=== PATIENT | female | born 1945 | race Caucasian/White ===

== ENCOUNTER → 2017-10-19 | Day surgery (SDC) | payer MEDICARE, OTHER ==
[~2017-10-19] VITALS: Ht 167.6 cm; Wt 61.2 kg
[~2017-10-19] MED LIST: ASPI-482 PO; BUPIVAC MPF-EPI 0.5%-1:200000 30 ML VIAL. ONE; CALC625T PO; DEXAMETHASONE SOD PHOS 20 MG/5 ML VIAL. ONE; GLUC1TAB45 PO; GLYCOPYRROLATE 1 MG/5 ML VIAL. ONE; HYDROmorphone 2 MG/ML VIAL IV PRN; IV RINGERS,LACTATED 1000ML 1,000 ML IV SCH; LIDOCAINE 1% PF 2 ML VIAL. ID PRN; LIDOCAINE 2% PF Vial for OR 5 ML VIAL. ONE; MORPHINE SULFATE 2 MG/ML DISP.SYRIN. IV PRN; MULT1TAB52 PO; NEOSTIGMINE METHYLSULFATE 5 MG/5 ML SYRINGE. ONE; OMEP20TA63 PO; ONDANSETRON PF 4 MG/2 ML VIAL. IV PRN; ONDANSETRON PF 4 MG/2 ML VIAL. ONE; PROCHLORPERAZINE 10 MG/2 ML VIAL. IV PRN; PROPOFOL 20 ML IV ONE; ROCURONIUM 50 MG/5 ML VIAL. ONE; SEVOFLURANE 61 TO 120 MINUTES. IH ONE; SUMA50TA3 PO; VENL37.56 PO; fentaNYL PF VIAL 100 MCG/2 ML VIAL IV PRN; fentaNYL PF VIAL 100 MCG/2 ML VIAL ONE
[2017-10-19 07:03] LABS: BASO # 0.1 x10^3/uL (0.0-0.2); BASO % 1 % (0-3); EOS % 2 % (0-3); HEMATOCRIT 45.6 % (36.0-47.0); HEMOGLOBIN 15.3 g/dL (12.0-15.5); LYMPH # 2.5 x10^3/uL (1.0-4.8); LYMPH % 32 % (24-48); MEAN CORPUSCULAR HEMOGLOBIN 33 pg (25-35); MEAN CORPUSCULAR HGB CONC 34 g/dL (31-37); MEAN CORPUSCULAR VOLUME 99 fL (79-100); MONO % 13 % (0-9); NEUT % 52 % (31-73); PLATELET COUNT 264 x10^3/uL (140-400); RED BLOOD COUNT 4.61 x10^6/uL (3.50-5.40); RED CELL DISTRIBUTION WIDTH 13.8 % (11.5-14.5); WHITE BLOOD COUNT 7.7 x10^3/uL (4.0-11.0)
--- NOTE | 2017-10-19 07:10 | EKG ---
[facility] [address] [place] [address] Test Date: 2017-10-19 Test Time: 07:10:11 Pat Name: AALIYAH ROWLAND Department: Room: Gender: F Logging Equipment Operator: ZOIE : 1945 Requested By: ANNETTE SCHMITT Order Number: [id number] Reading MD: Measurements Intervals [place] Rate: 72 P: 62 NV: 128 QRS: 28 QRSD: 128 T: 47 QT: 412 QTc: 453 Interpretive Statements SINUS RHYTHM LEFT ATRIAL ABNORMALITY RIGHT BUNDLE BRANCH BLOCK RVH WITH REPOLARIZATION ABNORMALITY ABNORMAL ECG RI6.01 No previous ECG available for comparison
--- NOTE | 2017-10-19 08:40 | PDOC ---
BRIEF OPERATIVE NOTE Date: Oct 19, 2017 Pre-Op Diagnosis pelvic pain and FH ovarian cancer Post-Op Diagnosis same Procedure Performed laparoscopic BSO Surgeon Carter Global Technical Writer none Anesthesiologist yes Anesthesia Type: General Blood Loss <10cc IV Fluid see anesthesia Urine Output see anesthesia report Specimens Obtained bilateral tubes and ovaries Findings see dictation Complications none Operative Note [id number] ANNETTE SCHMITT MD Oct 19, 2017 08:40
--- NOTE | 2017-10-19 08:41 | DISCH ---
DISCHARGE INSTRUCTIONS Condition on Discharge Condition on Discharge: Stable Activity After Discharge Activity Instructions for Disc: No restrictions, Avoid exertion, Progressive ambulation Lifting Instructions after Dis: No heavy lifting Exercise Instruction after Dis: Progress as tolerated Driving Instructions after Dis: Do not drive today Weight Bearing Status after Di: Full weight bearing Diet after Discharge Diet after Discharge: Regular Wound Incision Care Wound/Incision Care: Ice to area for comfort, May get incision wet Contacting the DRKelsey after DC Call your doctor for: If your condition worsens Follow-Up Follow up with: Dr. Myers in 1 week ANNETTE SCHMITT MD Oct 19, 2017 08:41
[2017-10-19] MEDS: fentaNYL PF VIAL 100 MCG/2 ML VIAL IV PRN ×2 (08:45→08:55)
--- NOTE | 2017-10-19 09:50 | OP ---
DATE OF SURGERY: PREOPERATIVE DIAGNOSES: This is a 72-year-old female who presents today for a history of pelvic pain and a family history of ovarian cancer in several of her relatives. POSTOPERATIVE DIAGNOSES: This is a 72-year-old female who presents today for a history of pelvic pain and a family history of ovarian cancer in several of her relatives. PROCEDURE: Laparoscopic bilateral salpingo-oophorectomy. SURGEON: Marisela Schmitt MD. ANESTHESIA: General. COMPLICATIONS: None. ESTIMATED BLOOD LOSS: Less than 10 mL. SPECIMENS: Bilateral tubes and ovaries. DESCRIPTION OF PROCEDURE: After informed consent was obtained, the patient was taken to the operating room and given a smooth induction of anesthesia without complications. Her abdomen, perineum and vagina were prepped and draped in usual sterile fashion. Her legs have been placed in Nicko stirrups. A bivalve speculum was placed in the vagina, and the anterior lip of the cervix was grasped with a single tooth tenaculum. A Valtchev was placed through the cervical os and attached to the tenaculum. The speculum was then removed. We did place a red Chapman catheter in the urethra and allowed it to drain freely throughout the case. These instruments were removed at the end. I then changed gloves and went above. Since the patient had a vertical incision in the past due to a partial colectomy, we opted to do a left upper quadrant stick. A vertical line across the midline of the breast was transposed onto the abdomen. We came about 3 cm beneath the edge of the ribcage to make a small 5 mm incision. The bladeless trocar was used to place the camera, the camera confirmed good trocar placement. We did then notice there were quite extensive adhesions across the midline where the previous scar was. These appeared to be mostly omental adhesions, and since they were out of our way, we did not bother with them. We went around them and placed a 5 mm port on the right side. This was placed under direct visualization and then an 11 mm port on the left side. These ports were placed under direct visualization. The patient was placed in Trendelenburg, and the uterus was noted to be slightly enlarged in a regular shape with multiple small fibroids. Both tubes and ovaries appeared to be normal. The tube was elevated on the left side. We were able to visualize the ureter beneath the tube and ovary. We then used the LigaSure to cauterize across the infundibulopelvic ligament and beneath the ovary to free it from its attachments. We then came across the uteroovarian pedicles to free the ovary and tube from the uterus. The same procedure was carried out on the opposite side. We also visualized the ureter on the right side, and we were well away from it. Once the tubes and ovaries were free, we placed an Endocatch bag down the port. Both ovaries were placed in the bag and removed from the abdomen without difficulty. Once this port was removed, we removed the other ports under direct visualization as well. I actually did take the camera out and put it in a different port to look at the upper abdomen. The patient's liver looked little bit enlarged to me, but otherwise normal. No bleeding was noted and no injuries from port placement were noted. Once the port sites were removed, the gas was allowed to escape, and the small incisions were closed with an interrupted suture of 4-0 nylon and infiltrated with anesthetic for patient comfort. Larger incision was closed with a 3-0 subcuticular stitch and also infiltrated with anesthetic for patient comfort. The patient tolerated the procedure well. There were no complications. MARISELA SCHMITT MD DR: ELISE/michael JOB#: [id number] / [id number]
[2017-10-19 10:45] VITALS: BP 115/51
== END | disposition home or self-care (01) ==
LOC: SURG 05:45
PROVIDERS: ATTEND Obstetrics & Gynecology
DX: R10.2 Pelvic and perineal pain (principal); K21.9 Gastro-esophageal reflux disease without esophagitis; F32.9 Major depressive disorder, single episode, unspecified; Z80.41 Family history of malignant neoplasm of ovary; Z98.41 Cataract extraction status, right eye; Z98.42 Cataract extraction status, left eye; Z86.69 Personal history of other diseases of the nervous system and sense organs; Z87.442 Personal history of urinary calculi; Z90.49 Acquired absence of other specified parts of digestive tract; Z87.39 Personal history of other diseases of the musculoskeletal system and connective tissue; Z72.0 Tobacco use; Z86.14 Personal history of Methicillin resistant Staphylococcus aureus infection
CPT/HCPCS: 36415; 58661; 85025; 93005; C1769; J0780; J1100; J2405; J2704; J2710; J3010; J3490; J7030; J7120; J2001